=== PATIENT | male | born 1975 | race Two or more races ===

== ENCOUNTER 2024-08-01 04:20 | Day surgery (SDC) | payer OTHER ==
[2024-07-31 11:44] VITALS: BMI 22.7
[2024-08-01] MEDS ORDERED: oxyCODONE HCL 5 MG TABLET PO PRN (10:11)
[2024-08-01] MEDS ORDERED: ONDANSETRON 4 MG/2 ML VIAL IVPUSH PRN (10:11)
[2024-08-01] MEDS ORDERED: LIDOCAINE HCL 1%, 10 MG/ML (20ML VIAL) ONE (10:14)
[2024-08-01] MEDS ORDERED: BUPIVACAINE HCL/PF 0.5% (5MG/ML) 10 ML VIAL ONE (10:14)
[2024-08-01] MEDS ORDERED: LACTATED RINGERS SOLUTION 1,000 ML IV SCH (10:15)
[2024-08-01] MEDS ORDERED: LIDOCAINE 1%/EPI 1:100000 (20 ML MULTI DOSE VIAL) ONE (10:16)
[2024-08-01] MEDS ORDERED: MIDAZOLAM HCL 2 MG/2 ML SINGLE DOSE VIAL ONE (10:32)
[2024-08-01] MEDS: ceFAZolin 2 GRAM PREMIX BAG IVPB ONE (10:46)
[2024-08-01] MEDS: LIDOCAINE 1%/EPI 1:100000 (50 ML MULTI DOSE VIAL) INF ONE (11:25)
[2024-08-01 12:36] VITALS: BP 118/65; PULSE 60; RESP 20; TEMP 97.2
== END 2024-08-01 11:58 | disposition home or self-care (01) ==
LOC: JASU-SURG 04:20
PROVIDERS: ATTEND Surgery
PROC: 0JB50ZZ Excision of Left Neck Subcutaneous Tissue and Fascia, Open Approach (ICD-10-PCS; principal; 2024-08-01 10:00)
DX: L72.3 Sebaceous cyst (principal)
CPT/HCPCS: 88304-TC; 94760